=== PATIENT | female | born 1985 | race Caucasian/White ===

== ENCOUNTER 2020-11-25 16:57 | Emergency (ER) | payer SELFPAY ==
[2020-11-25] MEDS ORDERED: diphenhydrAMINE 50 MG/ML SDV IM ONE (17:49)
[2020-11-25] MEDS ORDERED: Prochlorperazine 10 MG/2 ML SDV IM ONE (17:49)
[2020-11-25] MEDS ORDERED: Ketorolac 60 MG/2 ML SDV IM ONE (17:49)
--- NOTE | 2020-11-25 18:22 | EDM.PDOC ---
ED HPI GENERAL MEDICAL PROBLEM - General Chief Complaint: Headache Stated Complaint: MIGRAINE Time Seen by Provider: 11/25/20 17:45 Source of Information: Reports: Patient, Family History Limitations: Reports: No Limitations - History of Present Illness INITIAL COMMENTS - FREE TEXT/NARRATIVE: 35-year-old female with chronic migraine headaches, recently moved to the area. She developed aura 24 hours ago, and now has an intense left-sided migraine which is similar to her past months. Nausea with occasional vomiting, no weakness. She tends to respond well to a IM combination of Toradol, Compazine and Benadryl. This headache is no significantly different than past headaches. She has neurology working with her. No current treatment program that is helping. 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: Musculoskeletal History: Reports: Fibromyalgia Neurological History: Reports: Migraines - Past Surgical History HEENT Surgical History: Reports: Tonsillectomy GI Surgical History: Reports: Cholecystectomy Female Surgical History: Reports: Section, Hysterectomy Social & Family History - Tobacco Use Tobacco Use Status *Q: Heavy Tobacco User Years of Tobacco use: 20 Packs/Tins Daily: 1 - Caffeine Use Caffeine Use: Reports: Coffee, Soda - Recreational Drug Use Recreational Drug Use: No ED ROS GENERAL - Review of Systems Review Of Systems: See Below Constitutional: Denies: Fever, Chills HEENT: Denies: Vision Change Respiratory: Denies: Shortness of Breath GI/Abdominal: Reports: Nausea, Vomiting Skin: Reports: No Symptoms Neurological: Reports: Headache Psychiatric: Reports: No Symptoms - Physical Exam Exam: See Below Exam Limited By: No Limitations General Appearance: Alert, Mild Distress (Looks very uncomfortable) Head Exam: Atraumatic Respiratory/Chest: No Respiratory Distress Neuro Exam (Abbreviated): Alert, Oriented, No Motor/Sensory Deficits (No obvious neurologic deficits, ambulates without difficulty) Psychiatric: Flat Affect Skin Exam: Warm, Dry Course - Vital Signs Last Recorded V/S: Last Vital Signs Temp 97.2 F 11/25/20 17:33 Pulse 60 11/25/20 17:33 Resp 14 11/25/20 17:33 BP 112/72 11/25/20 17:33 Pulse Ox 98 11/25/20 17:33 - Orders/Labs/Meds Meds: Medications Discontinued Medications Generic Name Dose Route Start Last Admin Trade Name Steven PRN Reason Stop Dose Admin Diphenhydramine HCl 50 mg 11/25/20 17:49 11/25/20 18:11 Diphenhydramine 50 Mg/Ml Sdv IM 11/25/20 17:50 50 mg ONETIME ONE Administration Ketorolac Tromethamine 60 mg 11/25/20 17:49 11/25/20 18:01 Ketorolac 60 Mg/2 Ml Sdv IM 11/25/20 17:50 60 mg ONETIME ONE Administration Prochlorperazine Edisylate 10 mg 11/25/20 17:49 11/25/20 18:07 Prochlorperazine 10 Mg/2 Ml Sdv IM 11/25/20 17:50 10 mg ONETIME ONE Administration - Re-Assessments/Exams Free Text/Narrative Re-Assessment/Exam: 11/25/20 18:21 Patient was given 50 mg of IM Benadryl, 10 mg of IM Compazine, and 60 mg of IM Toradol. She was also discharged with 20 additional doses of oral Toradol to take 10 mg every 6 hours up to 5 days. I encouraged her to retry Imitrex at the onset of her next headache. Departure - Departure Time of Disposition: 18:38 Disposition: Home, Self-Care 01 Clinical Impression: Migraine - Discharge Information Instructions: Migraine Headache, E[facility] Referrals: PCP,None [Primary Care Provider] - Forms: ED Department Discharge Care Plan Goals: Use Toradol every 6 hours for persistent pain, and consider discussing another trial of Imitrex with your primary provider for your next migraine. Sepsis Event Note (ED) - Evaluation Sepsis Screening Result: No Definite Risk
== END 2020-11-25 18:38 | disposition home or self-care (01) ==
LOC: JP.ED 16:57
DX: G43.909 Migraine, unspecified, not intractable, without status migrainosus (principal); Z88.1 Allergy status to other antibiotic agents; Z72.0 Tobacco use
CPT/HCPCS: 96372; 99283; J0780; J1200; J1885

== ENCOUNTER 2021-05-04 09:41 | Emergency (ER) | payer SELFPAY ==
[2021-05-04] MEDS ORDERED: diphenhydrAMINE 50 MG/ML SDV IVPUSH ONE (10:23)
[2021-05-04] MEDS ORDERED: Ketorolac 30 MG/ML SDV IVPUSH ONE (10:23)
[2021-05-04] MEDS ORDERED: Prochlorperazine 10 MG/2 ML SDV IVPUSH ONE (10:23)
--- NOTE | 2021-05-04 10:27 | EDM.PDOC ---
ED HPI GENERAL MEDICAL PROBLEM - General Chief Complaint: Headache Stated Complaint: HEDACHE FOR PAST THREE DAYS Time Seen by Provider: 05/04/21 10:20 Source of Information: Reports: Patient, Family History Limitations: Reports: No Limitations - History of Present Illness INITIAL COMMENTS - FREE TEXT/NARRATIVE: 36-year-old female with chronic migraine type vascular headaches, last needed emergency treatment in November of this year and responds well to Compazine, Benadryl and Toradol. She has been putting up with this headache for the last 3 days, tested herself for Covid yesterday and was negative. No fevers and chills, just started with emesis this morning. No abdominal pain, shortness of breath or cough. It is not different than past bad breakthrough headaches, it is very similar to the one she had in November which responded well to the treatment with medications. Onset: Sudden (Started fairly suddenly 3 days ago) Location: Reports: Head (Bilateral, periorbital) Quality: Reports: Throbbing Severity: Severe Improves with: Reports: None Worsens with: Reports: Movement Associated Symptoms: Reports: Loss of Appetite, Malaise, Nausea/Vomiting. 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 2-3 sodas per day - Recreational Drug Use Recreational Drug Use: Yes ED ROS GENERAL - Review of Systems Review Of Systems: See Below Constitutional: Reports: Malaise. Denies: Fever, Chills HEENT: Denies: Vision Change (Photophobia but no vision change) Respiratory: Denies: Shortness of Breath, Cough Cardiovascular: Denies: Chest Pain GI/Abdominal: Reports: Nausea, Vomiting. Denies: Abdominal Pain, Diarrhea Musculoskeletal: Denies: Muscle Pain Skin: Denies: Rash, Erythema Neurological: Reports: Dizziness, Headache. Denies: Paresthesia, Trouble Speaking, Weakness, Change in Speech Psychiatric: Reports: No Symptoms - Physical Exam Exam: See Below Exam Limited By: No Limitations General Appearance: Alert, Moderate Distress (Very uncomfortable) Eye Exam: Bilateral Eye: Normal Inspection, PERRL Head Exam: Atraumatic Neck: Non-Tender Respiratory/Chest: Lungs Clear Cardiovascular: Regular Rate, Rhythm. No: Tachycardia GI/Abdominal: Soft, Non-Tender Neuro Exam (Abbreviated): Alert, Oriented, No Motor/Sensory Deficits Extremities: Normal Inspection. No: Pedal Edema Psychiatric: Flat Affect Skin Exam: Warm, Dry Course - Vital Signs Last Recorded V/S: Last Vital Signs Temp 95.1 F L 05/04/21 10:08 Pulse 60 05/04/21 11:03 Resp 20 05/04/21 10:08 BP 105/71 05/04/21 11:03 Pulse Ox 95 05/04/21 10:08 - Orders/Labs/Meds Meds: Medications Discontinued Medications Generic Name Dose Route Start Last Admin Trade Name Steven PRN Reason Stop Dose Admin Diphenhydramine HCl 50 mg 05/04/21 10:23 05/04/21 10:32 Diphenhydramine 50 Mg/Ml Sdv IVPUSH 05/04/21 10:24 50 mg ONETIME ONE Administration Ketorolac Tromethamine 30 mg 05/04/21 10:23 05/04/21 10:33 Ketorolac 30 Mg/Ml Sdv IVPUSH 05/04/21 10:24 30 mg ONETIME ONE Administration Prochlorperazine Edisylate 10 mg 05/04/21 10:23 05/04/21 10:33 Prochlorperazine 10 Mg/2 Ml Sdv IVPUSH 05/04/21 10:24 10 mg ONETIME ONE Administration - Re-Assessments/Exams Free Text/Narrative Re-Assessment/Exam: 05/04/21 10:26 Saline lock was started and the patient was given 30 mg of IV Toradol, 10 mg of IV Compazine, and 50 mg of IV Benadryl. 05/04/21 10:53 Patient had fairly good relief from the medications, got up and ambulated without difficulty and went to the bathroom. Was given a note for 2 days off work and encouraged to rest and stay hydrated. She can return if worsening. Departure - Departure Time of Disposition: 11:02 Disposition: Home, Self-Care 01 Clinical Impression: Migraine Migraine headache Qualifiers: Migraine type: unspecified Status migrainosus presence: without status migrainosus Intractability: not intractable Qualified Code(s): G43.909 - Migraine, unspecified, not intractable, without status migrainosus - Discharge Information Instructions: Migraine Headache Referrals: PCP,None [Primary Care Provider] - Forms: ED Department Discharge Care Plan Goals: Rest for the next 2 days, a regular dose of anti-inflammatory may help such as ibuprofen or naproxen, and stay hydrated. Increase activity as tolerated and recheck in 2 or 3 days if not improving satisfactorily. Return anytime if worsening. Sepsis Event Note (ED) - Evaluation Sepsis Screening Result: No Definite Risk - Focused Exam Vital Signs: Vital Signs Temp Pulse Resp BP Pulse Ox 05/04/21 11:03 60 105/71 05/04/21 10:08 95.1 F L 56 L 20 101/58 L 95
== END 2021-05-04 11:03 | disposition home or self-care (01) ==
LOC: JP.ED 09:41
DX: G43.909 Migraine, unspecified, not intractable, without status migrainosus (principal); Z88.1 Allergy status to other antibiotic agents; Z72.0 Tobacco use
CPT/HCPCS: 96374; 96375; 99283; J0780; J1200; J1885

== ENCOUNTER 2022-01-27 16:42 | Emergency (ER) | payer SELFPAY ==
[2022-01-27] MEDS ORDERED: Prochlorperazine 10 MG/2 ML SDV IVPUSH ONE (18:04)
[2022-01-27] MEDS ORDERED: Sodium Chloride 0.9% 10 ML Syringe FLUSH PRN (18:04)
[2022-01-27] MEDS ORDERED: Dexamethasone 4 MG/ML SDV IVPUSH ONE (18:04)
[2022-01-27] MEDS ORDERED: Ketorolac 30 MG/ML SDV IVPUSH ONE (18:04)
[2022-01-27] MEDS ORDERED: diphenhydrAMINE 50 MG/ML SDV IVPUSH ONE (18:04)
== END 2022-01-27 19:02 | disposition home or self-care (01) ==
LOC: JP.ED 16:42
DX: G43.909 Migraine, unspecified, not intractable, without status migrainosus (principal); F17.210 Nicotine dependence, cigarettes, uncomplicated; Z88.1 Allergy status to other antibiotic agents; Z90.49 Acquired absence of other specified parts of digestive tract; Z90.710 Acquired absence of both cervix and uterus
CPT/HCPCS: 96374; 96375; 99282; 99283; J0780; J1100; J1200; J1885; J3490

== ENCOUNTER 2022-07-22 12:13 | Emergency (ER) | payer SELFPAY ==
[2022-07-22] MEDS ORDERED: diphenhydrAMINE 50 MG/ML SDV IM ONE (12:57)
[2022-07-22] MEDS ORDERED: Ketorolac 30 MG/ML SDV IM ONE (12:57)
[2022-07-22] MEDS ORDERED: Prochlorperazine 10 MG/2 ML SDV IM ONE (12:58)
== END 2022-07-22 13:59 | disposition home or self-care (01) ==
LOC: JP.ED 12:13
DX: G43.109 Migraine with aura, not intractable, without status migrainosus (principal); F17.210 Nicotine dependence, cigarettes, uncomplicated; Z88.1 Allergy status to other antibiotic agents; Z86.16 Personal history of COVID-19
CPT/HCPCS: 96372; 99283; J0780; J1200; J1885